=== PATIENT | male | born 1990 | race Caucasian/White ===

== ENCOUNTER 2017-09-08 14:36 | Emergency (ER) | payer BC ==
--- NOTE | 2017-09-08 15:11 | EDM.PDOC ---
ED HPI GENERAL MEDICAL PROBLEM - General Chief Complaint: Upper Extremity Injury/Pain Stated Complaint: RIGHT SHOULDER INJURY Time Seen by Provider: 09/08/17 14:50 Source of Information: Reports: Patient, Significant Other (Fiance) History Limitations: Reports: No Limitations - History of Present Illness INITIAL COMMENTS - FREE TEXT/NARRATIVE: The patient states that he felt a "pop" in his right shoulder while lifting an approximately 2 pound sheet of insulation over his head yesterday, 09/07/2017, while at work. He states that he has had pain in his superio-lateral right shoulder ever since. The pain is minimal if he relaxes his arm, but significantly increased with use of his arm, particularly as his arm approach is shoulder height. The patient denies prior diagnosed shoulder injury, however, he believes that he has likely suffered prior injuries to his shoulder. The patient states that he has been taking ibuprofen since his injury, with adequate relief. The patient does not have a PCP. Right Shoulder Pain Score (Numeric/FACES): 4 - Related Data Allergies Allergy/AdvReac Type Severity Reaction Status Date / Time No Known Allergies Allergy Verified 09/08/17 14:46 Home Meds: Home Meds Albuterol Sulfate 1 puff INH ASDIRECTED 09/08/17 [History] Fluticasone/Salmeterol [Advair 500-50] 1 puff INH BID 09/08/17 [History] Montelukast [Singulair] 10 mg PO BEDTIME 09/08/17 [History] Past Medical History Respiratory History: Reports: Asthma - Past Surgical History HEENT Surgical History: Reports: Oral Surgery ([place] teeth extraction) Musculoskeletal Surgical History: Reports: Arthroscopic Knee (right) Social & Family History - Tobacco Use Smoking Status *Q: Never Smoker - Caffeine Use Caffeine Use: Reports: Coffee, Soda, Tea - Alcohol Use Alcohol Use History: Yes Alcohol Use Frequency: Socially - Recreational Drug Use Recreational Drug Use: No - Living Situation & Occupation Living situation: Reports: Single, with Significant Other (Fiance) Occupation: Employed (Digital Service Engineer) Review of Systems - Review of Systems Review Of Systems: ROS reveals no pertinent complaints other than HPI. ED EXAM, GENERAL - Physical Exam Exam: See Below Exam Limited By: No Limitations General Appearance: Alert, WD/WN, No Apparent Distress Extremities: Other (No visible abnormality to the right shoulder, such as swelling, erythema, ecchymosis, or abrasion. There is tenderness to palpation over the deltoid bursa. Pain is induced to the superio-lateral shoulder with AROM, in particular, abduction. Pain is also induced with PROM, particularly with elevation of the right arm near shoulder height. Part of this may be due to the patient having difficulty relaxing his musculature. No crepitus. Neurovascular status of the right upper extremity is intact.) Course - Orders/Labs/Meds Orders: Active Orders 24 hr Category Date Time Status Shoulder Comp Rt [CR] Stat Exams 09/08/17 14:51 Taken DME for Discharge [COMM] Stat Oth 09/08/17 15:21 Ordered - Re-Assessments/Exams Free Text/Narrative Re-Assessment/Exam: 09/08/17 15:09 3-view radiographs of the right shoulder appear to demonstrate calcified body over the supero-lateral humeral head, consistent with avulsion. No other fracture or dislocation identified. Formal read per the Radiologist pending. 09/08/17 15:21 As above, it appears that the patient suffered an avulsion injury to his right shoulder. He will be placed into an arm sling today, but I would like him to follow-up with an orthopedic surgeon, either Dr. Andre when he returns, or an Orthopedic Surgeon in [place], as soon as possible. In the meantime, I would like his fiance to perform PROM of the shoulder. I demonstrated for the patient passive arm swinging and wall crawl. Departure - Departure Time of Disposition: 15:22 Disposition: Home, Self-Care 01 Condition: Fair Clinical Impression: Avulsion injury of right shoulder region - Discharge Information Referrals: PCP,None [Primary Care Provider] - Timothy Andre MD [Physician] - Tommy De La Fuente MD [Physician] - Forms: ED Department Discharge Additional Instructions: You were seen in the emergency room after injuring your right shoulder at work on 09/07/2017. Workup in the ER included x-rays of your right shoulder, which appears to demonstrate an avulsion injury to the right shoulder. Your right arm has been placed into a sling. You need to move your right shoulder, however, to prevent a frozen shoulder. You can have your fiance move your shoulder through a range of motion while you relax your muscles. Alternatively, you can lean forward, allowing your right arm to hang while you swing it with your body. Alternatively, you can perform a "wall crawl", as demonstrated. You can follow-up with the Orthopedic Surgeon here in [place], Dr. Andre, when he returns, OR you can follow-up with Dr. Tommy De La Fuente, a shoulder surgeon in [place]. Either way, you should be seen this coming week. Take [id number] ibuprofen as needed for discomfort. If any other problems, please do not hesitate to return to the ER. - My Orders Last 24 Hours: My Active Orders 09/08/17 14:51 Shoulder Comp Rt [CR] Stat 09/08/17 15:21 DME for Discharge [COMM] Stat - Assessment/Plan Last 24 Hours: My Active Orders 09/08/17 14:51 Shoulder Comp Rt [CR] Stat 09/08/17 15:21 DME for Discharge [COMM] Stat
--- NOTE | 2017-09-08 15:32 | CR ---
Right shoulder: Three views of the right shoulder were obtained. Comparison: No previous study. Glenohumeral and acromioclavicular joints are unremarkable. Soft tissue calcification is noted off the greater tuberosity compatible with calcific tendinitis. No acute fracture, dislocation or other bony abnormality is seen. Impression: 1. Calcific tendinitis. 2. Right shoulder study is otherwise unremarkable. Diagnostic code #3
== END 2017-09-08 15:35 | disposition home or self-care (01) ==
LOC: JD.ED 14:36
DX: S49.81XA Other specified injuries of right shoulder and upper arm, initial encounter (principal); X50.0XXA Overexertion from strenuous movement or load, initial encounter; Y99.0 Civilian activity done for income or pay
CPT/HCPCS: 73030-26-RT; 73030-RT; 99283